=== PATIENT | male | born 1950 | race Caucasian/White ===

== ENCOUNTER 2017-07-30 14:00 | Outpatient (RCR) | payer MEDICAID, SELFPAY ==
[2017-07-05 00:44] VITALS: BP 143/68; PULSE 85; RESP 18; TEMP 37.2; BMI 53.1
[2017-07-23 14:02] VITALS: BP 126/76; PULSE 104; RESP 20; TEMP 37.3; BMI 53.1
--- NOTE | 2017-07-23 18:21 | PCM.WC.PN ---
(1) Chronic venous hypertension (idiopathic) with ulcer of bilateral lower extremity Status: Chronic Current Visit: Yes Code(s): I87.313 - Chronic venous hypertension (idiopathic) with ulcer of bilateral lower extremity (2) Bilateral edema of lower extremity Status: Chronic Current Visit: Yes Code(s): R60.0 - Localized edema (3) Morbid obesity due to excess calories Status: Chronic Current Visit: Yes Code(s): E66.01 - Morbid (severe) obesity due to excess calories (4) Lymphedema Status: Chronic Current Visit: Yes Code(s): I89.0 - Lymphedema, not elsewhere classified (5) Venous ulcer of right lower extremity without varicose veins Status: Chronic Current Visit: Yes Code(s): I87.2 - Venous insufficiency (chronic) (peripheral); L97.919 - Non-pressure chronic ulcer of unspecified part of right lower leg with unspecified severity Type of Wound Date of Service: 07/23/17 Chief Complaint: venous ulcers of bilateral lower extremities, chronic lymphedema of bilateral lower extremities History of Wound: This is a 64-year-old morbidly obese white male with multiple medical problems. These include diabetes mellitus, sleep apnea, hyperlipidemia, chronic obstructive pulmonary disease, lower extremity swelling, edema, and lymphedema, etc. The patient's chronic obstructive pulmonary disease and morbid obesity significantly limit his mobility. He is also oxygen dependent. The patient had a dehisced surgical wound on the posterior aspect of his right thigh following excision of a benign lesion on April 20, 2014 which has been healed after treatment at the wound healing center. He has chronic swelling and edema and lymphedema in his lower extremities, with skin changes and has been noncompliant with lymphedema pumps and compression stockings. The changes in the lower extremities appear related to chronic dependency. He presents complaining of ulcerations of lower extremities and drainage which started about a week and a half ago. He was recently discharged from our care on 05/14/17 for similar ulcerations caused by venous disease and lymphedema but has been noncompliant with ongoing compression treatment. Progress of Wound: Kamran tolerated UNNA boots. His left leg is healed but still edematous. His right leg is improved as well. He has chronic lymphedema. He refused Circaids as he states that he cannot afford them. He has lymphedema pumps but does not use them. He denies fever or chills. - Physical Exam Vital Signs Temp Pulse Resp BP 99.1 F 104 H 20 H 126/76 H 07/23/17 14:02 07/23/17 14:02 07/23/17 14:02 07/23/17 14:02 General: Alert, Oriented x3, Cooperative, No apparent distress HEENT: Atraumatic, Normocephalic Oral: Moist Mucosa Abdomen: Obese Extremities: Edema Skin: Ulcer/ Wound Wound Measurements and Assessment - Nurse 1 - General Ulcer Measurement Start: 07/23/17 14:02 Freq: Status: Active Protocol: Activity Type Activity Date Activity User E-Sign Co-Sign Detail Recorded Client Recorded Date Recorded By Document 07/23/17 14:02 [facility] [id number] 07/23/17 14:22 [facility] 07/23/17 14:02 Wound Center Nurse 1 [Ulcer Assessment Protocol: WC.WD.LOC] #8 LT POST LOWER LEG CLUSTER -Combined with other wound No -Current Size (cm) - Length 0 -Current Size (cm) - Width 0 -Current Size (cm) - Depth 0 -Total Square Cm 0 -Epithelialization Large 67-100% #7 RT INFERIOR CALF CLUSTER -Combined with other wound No -Current Size (cm) - Length 4.9 -Current Size (cm) - Width 8 -Current Size (cm) - Depth 0.1 -Total Square Cm 39.2 -Photo Taken No -Epithelialization Medium 34-66% -Tunneling No -Undermining/Tunneling No -Exudate Amt Small (1-33%) -Exudate Type Serosanguineous -Wound Margin Distinct, Outline Attached -Granulation Amt Large (67-100%) -Granulation Quality [place] -Slough/Fibrin No -Necrosis Amt None Present (0 %) -Structure Exposed N/A -Texture (Estela-wound Skin Appearance) Scarring -Moisture (Estela-wound Skin Appearance Dry/Scaly ) -Color (Estela-wound Skin Appearance) Hemosiderin Staining -Temperature (Estela-wound Skin No Abnormality Appearance) (Pt Warm) -Tenderness on Palpation (Estela-wound No Skin Appearance) -Ulcer Cleansing Wound Cleanser -Foul Odor after Cleansing No -Anesthetic Used 4% Lidocaine Solution #6 RT SUPERIOR CALF -Combined with other wound No -Current Size (cm) - Length 2 -Current Size (cm) - Width 2 -Current Size (cm) - Depth 0.1 -Total Square Cm 4 -Photo Taken No -Epithelialization Medium 34-66% -Tunneling No -Undermining/Tunneling No -Exudate Amt Medium (34-66%) -Exudate Type Serosanguineous -Wound Margin Distinct, Outline Attached -Granulation Amt Large (67-100%) -Granulation Quality [place] -Slough/Fibrin No -Necrosis Amt None Present (0 %) -Structure Exposed None/Limited to Skin Breakdown -Texture (Estela-wound Skin Appearance) Scarring -Moisture (Estela-wound Skin Appearance Dry/Scaly ) -Color (Estela-wound Skin Appearance) Hemosiderin Staining -Temperature (Estela-wound Skin No Abnormality Appearance) (Pt Warm) -Tenderness on Palpation (Estela-wound No Skin Appearance) -Ulcer Cleansing Wound Cleanser -Foul Odor after Cleansing No -Anesthetic Used 4% Lidocaine Solution [Edema Assessment] -Lower Limb Edema Present Yes -Right Calf (cm) 54.4 -Right Ankle (cm) 34.9 -Left Calf (cm) 51 -Left Ankle (cm) 33.4 WC - Nurse 2 - General Ulcer CM Notes Start: 07/23/17 14:02 Freq: Status: Active Protocol: Activity Type Activity Date Activity User E-Sign Co-Sign Detail Recorded Client Recorded Date Recorded By Document 07/23/17 15:59 [id number] 07/23/17 16:03 07/23/17 15:59 Wound Center Nurse 2 [Procedure/Treatment] #8 LT POST LOWER LEG CLUSTER -Time 15:59 -Correct Patient Yes -Correct Side, Site, Position Yes -Correct Procedure Yes -Procedure Performed Yes -Post Debridement Size (cm) - Length 0 -Post Debridement Size (cm) - Width 0 -Post Debridement Size (cm) - Depth 0 -Total Square Cm 0 -Wound/Ulcer Outcome Healed- Epithelialized -Ulcer Cleansing Rinsed/ Irrigated with Saline -Foul Odor after Cleansing No -Bioengineered Tissue No -Cetacaine [place] No -Bleeding Controlled with NA -Treatment Response Procedure Tolerated Well #7 RT INFERIOR CALF CLUSTER -Time 16:00 -Correct Patient Yes -Correct Side, Site, Position Yes -Correct Procedure Yes -Procedure Performed Yes -Post Debridement Size (cm) - Length 8.0 -Post Debridement Size (cm) - Width 8.0 -Post Debridement Size (cm) - Depth 0.1 -Total Square Cm 64.00 -Wound/Ulcer Outcome Not Healed -Ulcer Cleansing Rinsed/ Irrigated with Saline -Foul Odor after Cleansing No -Bioengineered Tissue No -Cetacaine [place] No -Topical Lidocaine (%) 5 -Bleeding Controlled with NA -Other NO DEBRIDEMENT TODAY -Treatment Response Procedure Tolerated Well #6 RT SUPERIOR CALF -Time 16:01 -Correct Patient Yes -Correct Side, Site, Position Yes -Correct Procedure Yes -Procedure Performed Yes -Post Debridement Size (cm) - Length 0 -Post Debridement Size (cm) - Width 0 -Post Debridement Size (cm) - Depth 0 -Total Square Cm 0 -Wound/Ulcer Outcome Healed- Epithelialized -Ulcer Cleansing Rinsed/ Irrigated with Saline -Foul Odor after Cleansing No -Bioengineered Tissue No -Cetacaine [place] No -Bleeding Controlled with NA -Treatment Response Procedure Tolerated Well [See Physician Procedure note for Specifics] Pain Scale: 0-10 Numeric [Pain] -Is Patient Pain Free? Yes Psych/Mental Status: Normal Affect, Appropriate Debridement Note Post-Debridement Measurements/Treatment WC - Nurse 2 - General Ulcer CM Notes Start: 07/23/17 14:02 Freq: Status: Active Protocol: Activity Type Activity Date Activity User E-Sign Co-Sign Detail Recorded Client Recorded Date Recorded By Document 07/23/17 15:59 [id number] 07/23/17 16:03 07/23/17 15:59 Wound Center Nurse 2 #8 LT POST LOWER LEG CLUSTER -Time 15:59 -Correct Patient Yes -Correct Side, Site, Position Yes -Correct Procedure Yes -Procedure Performed Yes -Post Debridement Size (cm) - Length 0 -Post Debridement Size (cm) - Width 0 -Post Debridement Size (cm) - Depth 0 -Total Square Cm 0 -Wound/Ulcer Outcome Healed- Epithelialized -Ulcer Cleansing Rinsed/ Irrigated with Saline -Foul Odor after Cleansing No -Bioengineered Tissue No -Cetacaine [place] No -Bleeding Controlled with NA -Treatment Response Procedure Tolerated Well #7 RT INFERIOR CALF CLUSTER -Time 16:00 -Correct Patient Yes -Correct Side, Site, Position Yes -Correct Procedure Yes -Procedure Performed Yes -Post Debridement Size (cm) - Length 8.0 -Post Debridement Size (cm) - Width 8.0 -Post Debridement Size (cm) - Depth 0.1 -Total Square Cm 64.00 -Wound/Ulcer Outcome Not Healed -Ulcer Cleansing Rinsed/ Irrigated with Saline -Foul Odor after Cleansing No -Bioengineered Tissue No -Cetacaine [place] No -Topical Lidocaine (%) 5 -Bleeding Controlled with NA -Other NO DEBRIDEMENT TODAY -Treatment Response Procedure Tolerated Well #6 RT SUPERIOR CALF -Time 16:01 -Correct Patient Yes -Correct Side, Site, Position Yes -Correct Procedure Yes -Procedure Performed Yes -Post Debridement Size (cm) - Length 0 -Post Debridement Size (cm) - Width 0 -Post Debridement Size (cm) - Depth 0 -Total Square Cm 0 -Wound/Ulcer Outcome Healed- Epithelialized -Ulcer Cleansing Rinsed/ Irrigated with Saline -Foul Odor after Cleansing No -Bioengineered Tissue No -Cetacaine [place] No -Bleeding Controlled with NA -Treatment Response Procedure Tolerated Well Pain Scale: 0-10 Numeric Is Patient Pain Free? Yes Wound debrided: left posterior leg cluster Laterality: Left No debridement was completed today - Additional Wound Wound debrided: right inferior calf cluster Laterality: Right Patient tolerated procedure: Patient tolerated procedure well Operative Diagnosis: No debridement performed - Additional Wound Wound debrided: right superior calf Laterality: Right Patient tolerated procedure: Patient tolerated procedure well Operative Diagnosis: No debridement performed Assessment/Plan Active Problems Chronic venous hypertension (idiopathic) with ulcer of bilateral lower extremity (Chronic) Bilateral edema of lower extremity (Chronic) Morbid obesity due to excess calories (Chronic) Lymphedema (Chronic) Venous ulcer of right lower extremity without varicose veins (Chronic) Assessment: lymphedema. Chronic venous hypertension with ulcers right and left LE. morbid obesity Plan: Philippes wounds/ulcers were evaluated but no debridement was necessary as there was not any slough or devitalized tissue present. The wounds were pink and very supperficial. Will treat him with Aquacel Ag and Unna boot compression and have him return next week for change. Reiterated importance of compression ongoing and also good protein intake as well as glucose control. His noncompliance with compression treatment was discussed and he is aware that this is the reason why he has had recurrence of his ulcers. He will follow up in 1 week.
--- NOTE | 2017-07-23 18:26 | PN.PCM_ITS ---
(1) Chronic venous hypertension (idiopathic) with ulcer of bilateral lower extremity Status: Chronic Current Visit: Yes Code(s): I87.313 - Chronic venous hypertension (idiopathic) with ulcer of bilateral lower extremity (2) Bilateral edema of lower extremity Status: Chronic Current Visit: Yes Code(s): R60.0 - Localized edema (3) Morbid obesity due to excess calories Status: Chronic Current Visit: Yes Code(s): E66.01 - Morbid (severe) obesity due to excess calories (4) Lymphedema Status: Chronic Current Visit: Yes Code(s): I89.0 - Lymphedema, not elsewhere classified (5) Venous ulcer of right lower extremity without varicose veins Status: Chronic Current Visit: Yes Code(s): I87.2 - Venous insufficiency ( chronic) (peripheral); L97.919 - Non-pressure chronic ulcer of unspecified part of right lower leg with unspecified severity Type of Wound Date of Service: 07/23/17 Chief Complaint: venous ulcers of bilateral lower extremities, chronic lymphedema of bilateral lower extremities History of Wound: This is a 64-year-old morbidly obese white male with multiple medical problems. These include diabetes mellitus, sleep apnea, hyperlipidemia , chronic obstructive pulmonary disease, lower extremity swelling, edema, and lymphedema, etc. The patient's chronic obstructive pulmonary disease and morbid obesity significantly limit his mobility. He is also oxygen dependent. The patient had a dehisced surgical wound on the posterior aspect of his right thigh following excision of a benign lesion on April 20, 2014 which has been healed after treatment at the wound healing center. He has chronic swelling and edema and lymphedema in his lower extremities, with skin changes and has been noncompliant with lymphedema pumps and compression stockings. The changes in the lower extremities appear related to chronic dependency. He presents complaining of ulcerations of lower extremities and drainage which started about a week and a half ago. He was recently discharged from our care on for similar ulcerations caused by venous disease and lymphedema but has been noncompliant with ongoing compression treatment. Progress of Wound: Kamran tolerated UNNA boots. His left leg is healed but still edematous. His right leg is improved as well. He has chronic lymphedema. He refused Circaids as he states that he cannot afford them. He has lymphedema pumps but does not use them. He denies fever or chills. - Physical Exam Vital Signs Temp Pulse Resp BP 99.1 F 104 H 20 H 126/76 H 07/23/17 14:02 07/23/17 14:02 07/23/17 14:02 07/23/17 14:02 General: Alert, Oriented x3, Cooperative, No apparent distress HEENT: Atraumatic, Normocephalic Oral: Moist Mucosa Abdomen: Obese Extremities: Edema Skin: Ulcer/ Wound Wound Measurements and Assessment - Nurse 1 - General Ulcer Measurement Start: 07/23/17 14:02 Freq: Status: Active Protocol: Activity Type Activity Date Activity User E-Sign Co-Sign Detail Recorded Client Recorded Date Recorded By Document 07/23/17 14:02 [facility] [id number] 07/23/17 14:22 [facility] 07/23/17 14:02 Wound Center Nurse 1 [Ulcer Assessment Protocol: WC.WD.LOC] #8 LT POST LOWER LEG CLUSTER -Combined with other wound No -Current Size (cm) - Length 0 -Current Size (cm) - Width 0 -Current Size (cm) - Depth 0 -Total Square Cm 0 -Epithelialization Large 67-100% #7 RT INFERIOR CALF CLUSTER -Combined with other wound No -Current Size (cm) - Length 4.9 -Current Size (cm) - Width 8 -Current Size (cm) - Depth 0.1 -Total Square Cm 39.2 -Photo Taken No -Epithelialization Medium 34-66% -Tunneling No -Undermining/Tunneling No -Exudate Amt Small (1-33%) -Exudate Type Serosanguineous -Wound Margin Distinct, Outline Attached -Granulation Amt Large (67-100%) -Granulation Quality [place] -Slough/Fibrin No -Necrosis Amt None Present (0 %) -Structure Exposed N/A -Texture (Estela-wound Skin Appearance) Scarring -Moisture (Estela-wound Skin Appearance Dry/Scaly ) -Color (Estela-wound Skin Appearance) Hemosiderin Staining -Temperature (Estela-wound Skin No Abnormality Appearance) (Pt Warm) -Tenderness on Palpation (Estela-wound No Skin Appearance) -Ulcer Cleansing Wound Cleanser -Foul Odor after Cleansing No -Anesthetic Used 4% Lidocaine Solution #6 RT SUPERIOR CALF -Combined with other wound No -Current Size (cm) - Length 2 -Current Size (cm) - Width 2 -Current Size (cm) - Depth 0.1 -Total Square Cm 4 -Photo Taken No -Epithelialization Medium 34-66% -Tunneling No -Undermining/Tunneling No -Exudate Amt Medium (34-66%) -Exudate Type Serosanguineous -Wound Margin Distinct, Outline Attached -Granulation Amt Large (67-100%) -Granulation Quality [place] -Slough/Fibrin No -Necrosis Amt None Present (0 %) -Structure Exposed None/Limited to Skin Breakdown -Texture (Estela-wound Skin Appearance) Scarring -Moisture (Estela-wound Skin Appearance Dry/Scaly ) -Color (Estela-wound Skin Appearance) Hemosiderin Staining -Temperature (Estela-wound Skin No Abnormality Appearance) (Pt Warm) -Tenderness on Palpation (Estela-wound No Skin Appearance) -Ulcer Cleansing Wound Cleanser -Foul Odor after Cleansing No -Anesthetic Used 4% Lidocaine Solution [Edema Assessment] -Lower Limb Edema Present Yes -Right Calf (cm) 54.4 -Right Ankle (cm) 34.9 -Left Calf (cm) 51 -Left Ankle (cm) 33.4 WC - Nurse 2 - General Ulcer CM Notes Start: 07/23/17 14:02 Freq: Status: Active Protocol: Activity Type Activity Date Activity User E-Sign Co-Sign Detail Recorded Client Recorded Date Recorded By Document 07/23/17 15:59 [id number] 07/23/17 16:03 07/23/17 15:59 Wound Center Nurse 2 [Procedure/Treatment] #8 LT POST LOWER LEG CLUSTER -Time 15:59 -Correct Patient Yes -Correct Side, Site, Position Yes -Correct Procedure Yes -Procedure Performed Yes -Post Debridement Size (cm) - Length 0 -Post Debridement Size (cm) - Width 0 -Post Debridement Size (cm) - Depth 0 -Total Square Cm 0 -Wound/Ulcer Outcome Healed- Epithelialized -Ulcer Cleansing Rinsed/ Irrigated with Saline -Foul Odor after Cleansing No -Bioengineered Tissue No -Cetacaine [place] No -Bleeding Controlled with NA -Treatment Response Procedure Tolerated Well #7 RT INFERIOR CALF CLUSTER -Time 16:00 -Correct Patient Yes -Correct Side, Site, Position Yes -Correct Procedure Yes -Procedure Performed Yes -Post Debridement Size (cm) - Length 8.0 -Post Debridement Size (cm) - Width 8.0 -Post Debridement Size (cm) - Depth 0.1 -Total Square Cm 64.00 -Wound/Ulcer Outcome Not Healed -Ulcer Cleansing Rinsed/ Irrigated with Saline -Foul Odor after Cleansing No -Bioengineered Tissue No -Cetacaine [place] No -Topical Lidocaine (%) 5 -Bleeding Controlled with NA -Other NO DEBRIDEMENT TODAY -Treatment Response Procedure Tolerated Well #6 RT SUPERIOR CALF -Time 16:01 -Correct Patient Yes -Correct Side, Site, Position Yes -Correct Procedure Yes -Procedure Performed Yes -Post Debridement Size (cm) - Length 0 -Post Debridement Size (cm) - Width 0 -Post Debridement Size (cm) - Depth 0 -Total Square Cm 0 -Wound/Ulcer Outcome Healed- Epithelialized -Ulcer Cleansing Rinsed/ Irrigated with Saline -Foul Odor after Cleansing No -Bioengineered Tissue No -Cetacaine [place] No -Bleeding Controlled with NA -Treatment Response Procedure Tolerated Well [See Physician Procedure note for Specifics] Pain Scale: 0-10 Numeric [Pain] -Is Patient Pain Free? Yes Psych/Mental Status: Normal Affect, Appropriate Debridement Note Post-Debridement Measurements/Treatment WC - Nurse 2 - General Ulcer CM Notes Start: 07/23/17 14:02 Freq: Status: Active Protocol: Activity Type Activity Date Activity User E-Sign Co-Sign Detail Recorded Client Recorded Date Recorded By Document 07/23/17 15:59 [id number] 07/23/17 16:03 07/23/17 15:59 Wound Center Nurse 2 #8 LT POST LOWER LEG CLUSTER -Time 15:59 -Correct Patient Yes -Correct Side, Site, Position Yes -Correct Procedure Yes -Procedure Performed Yes -Post Debridement Size (cm) - Length 0 -Post Debridement Size (cm) - Width 0 -Post Debridement Size (cm) - Depth 0 -Total Square Cm 0 -Wound/Ulcer Outcome Healed- Epithelialized -Ulcer Cleansing Rinsed/ Irrigated with Saline -Foul Odor after Cleansing No -Bioengineered Tissue No -Cetacaine [place] No -Bleeding Controlled with NA -Treatment Response Procedure Tolerated Well #7 RT INFERIOR CALF CLUSTER -Time 16:00 -Correct Patient Yes -Correct Side, Site, Position Yes -Correct Procedure Yes -Procedure Performed Yes -Post Debridement Size (cm) - Length 8.0 -Post Debridement Size (cm) - Width 8.0 -Post Debridement Size (cm) - Depth 0.1 -Total Square Cm 64.00 -Wound/Ulcer Outcome Not Healed -Ulcer Cleansing Rinsed/ Irrigated with Saline -Foul Odor after Cleansing No -Bioengineered Tissue No -Cetacaine [place] No -Topical Lidocaine (%) 5 -Bleeding Controlled with NA -Other NO DEBRIDEMENT TODAY -Treatment Response Procedure Tolerated Well #6 RT SUPERIOR CALF -Time 16:01 -Correct Patient Yes -Correct Side, Site, Position Yes -Correct Procedure Yes -Procedure Performed Yes -Post Debridement Size (cm) - Length 0 -Post Debridement Size (cm) - Width 0 -Post Debridement Size (cm) - Depth 0 -Total Square Cm 0 -Wound/Ulcer Outcome Healed- Epithelialized -Ulcer Cleansing Rinsed/ Irrigated with Saline -Foul Odor after Cleansing No -Bioengineered Tissue No -Cetacaine [place] No -Bleeding Controlled with NA -Treatment Response Procedure Tolerated Well Pain Scale: 0-10 Numeric Is Patient Pain Free? Yes Wound debrided: left posterior leg cluster Laterality: Left No debridement was completed today - Additional Wound Wound debrided: right inferior calf cluster Laterality: Right Patient tolerated procedure: Patient tolerated procedure well Operative Diagnosis: No debridement performed - Additional Wound Wound debrided: right superior calf Laterality: Right Patient tolerated procedure: Patient tolerated procedure well Operative Diagnosis: No debridement performed Assessment/Plan Active Problems Chronic venous hypertension (idiopathic) with ulcer of bilateral lower extremity (Chronic) Bilateral edema of lower extremity (Chronic) Morbid obesity due to excess calories (Chronic) Lymphedema (Chronic) Venous ulcer of right lower extremity without varicose veins (Chronic) Assessment: lymphedema. Chronic venous hypertension with ulcers right and left LE. morbid obesity Plan: Philippes wounds/ulcers were evaluated but no debridement was necessary as there was not any slough or devitalized tissue present. The wounds were pink and very supperficial. Will treat him with Aquacel Ag and Unna boot compression and have him return next week for change. Reiterated importance of compression ongoing and also good protein intake as well as glucose control. His noncompliance with compression treatment was discussed and he is aware that this is the reason why he has had recurrence of his ulcers. He will follow up in 1 week.
[2017-07-30 14:35] VITALS: BP 137/66; PULSE 106; RESP 22; TEMP 36.8; BMI 53.1
== END 2017-08-04 23:59 ==
LOC: WC 14:00
PROVIDERS: Visit Provider Family Medicine
DX: E11.622 Type 2 diabetes mellitus with other skin ulcer (principal); I87.313 Chronic venous hypertension (idiopathic) with ulcer of bilateral lower extremity; L97.219 Non-pressure chronic ulcer of right calf with unspecified severity; L97.929 Non-pressure chronic ulcer of unspecified part of left lower leg with unspecified severity; E66.01 Morbid (severe) obesity due to excess calories; Z71.3 Dietary counseling and surveillance; I89.0 Lymphedema, not elsewhere classified; E78.5 Hyperlipidemia, unspecified; J44.9 Chronic obstructive pulmonary disease, unspecified; G47.30 Sleep apnea, unspecified; Z99.81 Dependence on supplemental oxygen; Z91.19 Patient's noncompliance with other medical treatment and regimen
CPT/HCPCS: 29580; 99211; 99214; G0463

== ENCOUNTER 2017-08-06 09:27 | Outpatient (RCR) | payer MEDICAID, SELFPAY ==
[2017-07-30 14:35] VITALS: BP 137/66
[2017-08-05 00:34] VITALS: PULSE 106; RESP 22; TEMP 36.8
[2017-08-06 14:19] VITALS: BP 136/77; PULSE 104; RESP 20; TEMP 36.5; BMI 53.1
--- NOTE | 2017-08-06 19:01 | PCM.WC.PN ---
(1) Morbid obesity due to excess calories Status: Chronic Current Visit: Yes Code(s): E66.01 - Morbid (severe) obesity due to excess calories (2) Lymphedema Status: Chronic Current Visit: Yes Code(s): I89.0 - Lymphedema, not elsewhere classified (3) Venous ulcer of right lower extremity without varicose veins Status: Resolved Current Visit: Yes Code(s): I87.2 - Venous insufficiency (chronic) (peripheral); L97.919 - Non-pressure chronic ulcer of unspecified part of right lower leg with unspecified severity (4) Venous ulcer of left lower extremity without varicose veins Status: Resolved Current Visit: Yes Code(s): I87.2 - Venous insufficiency (chronic) (peripheral); L97.929 - Non-pressure chronic ulcer of unspecified part of left lower leg with unspecified severity Type of Wound Date of Service: 08/06/17 Chief Complaint: venous ulcers of bilateral lower extremities, chronic lymphedema of bilateral lower extremities History of Wound: This is a 64-year-old morbidly obese white male with multiple medical problems. These include diabetes mellitus, sleep apnea, hyperlipidemia, chronic obstructive pulmonary disease, lower extremity swelling, edema, and lymphedema, etc. The patient's chronic obstructive pulmonary disease and morbid obesity significantly limit his mobility. He is also oxygen dependent. The patient had a dehisced surgical wound on the posterior aspect of his right thigh following excision of a benign lesion on April 20, 2014 which has been healed after treatment at the wound healing center. He has chronic swelling and edema and lymphedema in his lower extremities, with skin changes and has been noncompliant with lymphedema pumps and compression stockings. The changes in the lower extremities appear related to chronic dependency. He presents complaining of ulcerations of lower extremities and drainage which started about a week and a half ago. He was recently discharged from our care on 05/14/17 for similar ulcerations caused by venous disease and lymphedema but has been noncompliant with ongoing compression treatment. Progress of Wound: Kamran tolerated UNNA boots. His wounds are healed. He has chronic lymphedema. He refused Circaids as he states that he cannot afford them. He has lymphedema pumps but does not use them. He denies fever or chills. - Physical Exam Vital Signs Temp Pulse Resp BP 97.7 F L 104 H 20 H 136/77 H 08/06/17 14:19 08/06/17 14:19 08/06/17 14:19 08/06/17 14:19 General: Alert, Oriented x3, Cooperative, No apparent distress HEENT: Atraumatic, Normocephalic Oral: Moist Mucosa Abdomen: Obese Extremities: Edema Wound Measurements and Assessment WC - Nurse 1 - General Ulcer Measurement Start: 08/06/17 14:19 Freq: Status: Active Protocol: Activity Type Activity Date Activity User E-Sign Co-Sign Detail Recorded Client Recorded Date Recorded By Document 08/06/17 14:19 [facility] [id number] 08/06/17 14:31 [facility] 08/06/17 14:19 Wound Center Nurse 1 [Edema Assessment] -Lower Limb Edema Present Yes -Right Calf (cm) 53.7 -Right Ankle (cm) 32 -Left Calf (cm) 55 -Left Ankle (cm) 31.1 WC - Nurse 2 - General Ulcer CM Notes Start: 08/06/17 14:19 Freq: Status: Active Protocol: Activity Type Activity Date Activity User E-Sign Co-Sign Detail Recorded Client Recorded Date Recorded By Document 08/06/17 15:37 [id number] 08/06/17 15:41 08/06/17 15:37 Pain Scale: 0-10 Numeric [Pain] -Is Patient Pain Free? Yes Psych/Mental Status: Normal Affect, Appropriate Debridement Note Post-Debridement Measurements/Treatment WC - Nurse 2 - General Ulcer CM Notes Start: 08/06/17 14:19 Freq: Status: Active Protocol: Activity Type Activity Date Activity User E-Sign Co-Sign Detail Recorded Client Recorded Date Recorded By Document 08/06/17 15:37 [id number] 08/06/17 15:41 08/06/17 15:37 Pain Scale: 0-10 Numeric Is Patient Pain Free? Yes No debridement was completed today Assessment/Plan Active Problems Morbid obesity due to excess calories (Chronic) Lymphedema (Chronic) Assessment: lymphedema. Chronic venous hypertension with ulcers right and left LE. morbid obesity Plan: Savage wounds/ulcers are healed. Will have him use tibigrips for compression. Reiterated importance of compression ongoing and also good protein intake as well as glucose control. His noncompliance with compression treatment was discussed and he is aware that this is the reason why he has had recurrence of his ulcers. He will be discharged at this time and will return if/when he develops recurrence of his ulcers. F/U as needed.
--- NOTE | 2017-08-06 19:05 | PN.PCM_ITS ---
(1) Morbid obesity due to excess calories Status: Chronic Current Visit: Yes Code(s): E66.01 - Morbid (severe) obesity due to excess calories (2) Lymphedema Status: Chronic Current Visit: Yes Code(s): I89.0 - Lymphedema, not elsewhere classified (3) Venous ulcer of right lower extremity without varicose veins Status: Resolved Current Visit: Yes Code(s): I87.2 - Venous insufficiency ( chronic) (peripheral); L97.919 - Non-pressure chronic ulcer of unspecified part of right lower leg with unspecified severity (4) Venous ulcer of left lower extremity without varicose veins Status: Resolved Current Visit: Yes Code(s): I87.2 - Venous insufficiency ( chronic) (peripheral); L97.929 - Non-pressure chronic ulcer of unspecified part of left lower leg with unspecified severity Type of Wound Date of Service: 08/06/17 Chief Complaint: venous ulcers of bilateral lower extremities, chronic lymphedema of bilateral lower extremities History of Wound: This is a 64-year-old morbidly obese white male with multiple medical problems. These include diabetes mellitus, sleep apnea, hyperlipidemia , chronic obstructive pulmonary disease, lower extremity swelling, edema, and lymphedema, etc. The patient's chronic obstructive pulmonary disease and morbid obesity significantly limit his mobility. He is also oxygen dependent. The patient had a dehisced surgical wound on the posterior aspect of his right thigh following excision of a benign lesion on April 20, 2014 which has been healed after treatment at the wound healing center. He has chronic swelling and edema and lymphedema in his lower extremities, with skin changes and has been noncompliant with lymphedema pumps and compression stockings. The changes in the lower extremities appear related to chronic dependency. He presents complaining of ulcerations of lower extremities and drainage which started about a week and a half ago. He was recently discharged from our care on for similar ulcerations caused by venous disease and lymphedema but has been noncompliant with ongoing compression treatment. Progress of Wound: Kamran tolerated UNNA boots. His wounds are healed. He has chronic lymphedema. He refused Circaids as he states that he cannot afford them. He has lymphedema pumps but does not use them. He denies fever or chills. - Physical Exam Vital Signs Temp Pulse Resp BP 97.7 F L 104 H 20 H 136/77 H 08/06/17 14:19 08/06/17 14:19 08/06/17 14:19 08/06/17 14:19 General: Alert, Oriented x3, Cooperative, No apparent distress HEENT: Atraumatic, Normocephalic Oral: Moist Mucosa Abdomen: Obese Extremities: Edema Wound Measurements and Assessment WC - Nurse 1 - General Ulcer Measurement Start: 08/06/17 14:19 Freq: Status: Active Protocol: Activity Type Activity Date Activity User E-Sign Co-Sign Detail Recorded Client Recorded Date Recorded By Document 08/06/17 14:19 [facility] [id number] 08/06/17 14:31 [facility] 08/06/17 14:19 Wound Center Nurse 1 [Edema Assessment] -Lower Limb Edema Present Yes -Right Calf (cm) 53.7 -Right Ankle (cm) 32 -Left Calf (cm) 55 -Left Ankle (cm) 31.1 WC - Nurse 2 - General Ulcer CM Notes Start: 08/06/17 14:19 Freq: Status: Active Protocol: Activity Type Activity Date Activity User E-Sign Co-Sign Detail Recorded Client Recorded Date Recorded By Document 08/06/17 15:37 [id number] 08/06/17 15:41 08/06/17 15:37 Pain Scale: 0-10 Numeric [Pain] -Is Patient Pain Free? Yes Psych/Mental Status: Normal Affect, Appropriate Debridement Note Post-Debridement Measurements/Treatment WC - Nurse 2 - General Ulcer CM Notes Start: 08/06/17 14:19 Freq: Status: Active Protocol: Activity Type Activity Date Activity User E-Sign Co-Sign Detail Recorded Client Recorded Date Recorded By Document 08/06/17 15:37 [id number] 08/06/17 15:41 08/06/17 15:37 Pain Scale: 0-10 Numeric Is Patient Pain Free? Yes No debridement was completed today Assessment/Plan Active Problems Morbid obesity due to excess calories (Chronic) Lymphedema (Chronic) Assessment: lymphedema. Chronic venous hypertension with ulcers right and left LE. morbid obesity Plan: Savage wounds/ulcers are healed. Will have him use tibigrips for compression. Reiterated importance of compression ongoing and also good protein intake as well as glucose control. His noncompliance with compression treatment was discussed and he is aware that this is the reason why he has had recurrence of his ulcers. He will be discharged at this time and will return if/when he develops recurrence of his ulcers. F/U as needed.
== END 2017-09-01 23:59 ==
LOC: WC 09:27
PROVIDERS: Visit Provider Family Medicine
DX: I87.2 Venous insufficiency (chronic) (peripheral) (principal); L97.929 Non-pressure chronic ulcer of unspecified part of left lower leg with unspecified severity; L97.919 Non-pressure chronic ulcer of unspecified part of right lower leg with unspecified severity; I89.0 Lymphedema, not elsewhere classified; E66.01 Morbid (severe) obesity due to excess calories; Z71.3 Dietary counseling and surveillance; E78.5 Hyperlipidemia, unspecified; J44.9 Chronic obstructive pulmonary disease, unspecified; G47.30 Sleep apnea, unspecified; Z99.81 Dependence on supplemental oxygen; Z91.19 Patient's noncompliance with other medical treatment and regimen
CPT/HCPCS: 99212; G0463

== ENCOUNTER 2017-09-23 14:00 | Outpatient (RCR) | payer MEDICAID, SELFPAY ==
[2017-09-02 00:30] VITALS: BP 136/77; PULSE 104; RESP 20; TEMP 36.5; BMI 53.1
[2017-09-09 15:54] VITALS: BP 136/64; PULSE 78; RESP 18; TEMP 37.4; BMI 50.1
--- NOTE | 2017-09-09 18:04 | PCM.WC.HP ---
(1) Venous ulcer of right lower extremity without varicose veins Status: Acute Code(s): I87.2 - Venous insufficiency (chronic) (peripheral); L97.919 - Non-pressure chronic ulcer of unspecified part of right lower leg with unspecified severity Comment: fat layer exposed (2) Diabetes mellitus type 2 in obese Status: Acute Code(s): E11.69 - Type 2 diabetes mellitus with other specified complication; E66.9 - Obesity, unspecified (3) Bilateral edema of lower extremity Status: Chronic Code(s): R60.0 - Localized edema (4) Morbid obesity due to excess calories Status: Chronic Code(s): E66.01 - Morbid (severe) obesity due to excess calories History of Present Illness Date of Service: 09/09/17 Chief Complaint: venous ulcers of right lower extremity, chronic lymphedema of bilateral lower extremities History of Wound: This is a 64-year-old morbidly obese white male with multiple medical problems. 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 He has chronic swelling and edema and lymphedema in his lower extremities, with skin changes and has been noncompliant with lymphedema pumps and compression stockings. He presents complaining of ulcerations of right lower extremity and drainage which started about a month ago shortly after being discharged from the wound center. He also noted edema of the bilateral lower extremities as well. He has been noncompliant with ongoing compression treatment, refuses to wear his circaids, and only wears his tubigrips as needed. He denies any other alleviating or aggravating factors and denies any pain or foul-smelling discharge. Past Medical History Past Medical History: Chronic Problems Morbid obesity due to excess calories (Chronic) Bilateral edema of lower extremity (Chronic) Lymphedema (Chronic) Chronic venous hypertension (idiopathic) with ulcer of bilateral lower extremity (Chronic) Surgical History: - - Left knee surgery, 1978 Allergies/Adverse Reactions: Allergies cephalexin [From Keflex] Allergy (Verified 01/14/17 16:06) Hives Home Medications: Ambulatory Orders Medication Instructions Recorded Albuterol Aerosols [Ventolin 05/28/14 Aerosols] Furosemide [Lasix] 80 mg PO BIDLX 05/28/14 Glimepiride [Amaryl] 4 mg PO DAILY 05/28/14 Meloxicam [Mobic] 15 mg PO DAILY 05/28/14 Metformin HCl [Glucophage] 1,000 mg PO BIDCM 05/28/14 Omeprazole [Prilosec] 20 mg PO DAILY 05/28/14 Pioglitazone [Actos] 30 mg PO 05/28/14 Potassium Chloride [K-Dur] 10 meq PO DAILY 05/28/14 Simvastatin [Zocor] 20 mg PO QHS 05/28/14 Furosemide [Lasix] 80 mg PO QHS 01/14/17 - Family History Paternal COPD, Renal Disease, - - Pneumonia Maternal - - Lymphoma Smoking Status: Current every day smoker Tobacco Use: Chew Review of Systems Constitutional: Denies: Chills, Fever, Weight Change Eyes: Denies: Pain, Vision Change HEENT: Denies: Difficulty Hearing, Difficulty Swallowing, Sinus Congestion Cardiovascular: Denies: Chest Pain, Palpitations Respiratory: Denies: Cough, Shortness of Breath Gastrointestinal: Denies: Diarrhea, Nausea, Vomiting Genitourinary: Denies: Dysuria, Hematuria Skin: Reports: Wounds - see hpi Endocrine: Denies: Heat/ Cold Intolerance, Polydipsia, Polyuria Hematologic/ Lymphatic: Denies: Easy Bruising, Easy Bleeding - Physical Exam Vital Signs Temp Pulse Resp BP 98.6 F 102 H 18 138/63 H 09/13/17 14:58 09/13/17 14:58 09/13/17 14:58 09/13/17 14:58 General: Alert, Oriented x3, Cooperative, No apparent distress HEENT: PERRLA, EOMI Oral: Moist Mucosa Neck: Supple Lungs: Clear to auscultation, Diminished Cardiovascular: Regular rate, Normal S1, Normal S2, No murmurs Abdomen: Bowel Sounds Present Extremities: No clubbing, No Calf Tenderness, Diminished Peripheral Pulses, Edema - Bilateral lower extremities 2+ pitting edema, erythematous as well Skin: Ulcer/ Wound - Cluster ulcer present right posterior lower extremity with moderate amount of slough and fibrous tissue present, inflamed periwound bed Wound Measurements and Assessment WC - Nurse 1 - General Ulcer Measurement Start: 09/09/17 15:54 Freq: Status: Active Protocol: Activity Type Activity Date Activity User E-Sign Co-Sign Detail Recorded Client Recorded Date Recorded By Document 09/13/17 14:58 [facility] [id number] 09/13/17 15:02 BMF 09/13/17 14:58 Wound Center Nurse 1 [Edema Assessment] -Lower Limb Edema Present Yes -Right Calf (cm) 51.8 -Right Ankle (cm) 33.4 -Left Calf (cm) 51.5 -Left Ankle (cm) 31.4 Musculoskeletal: No Tenderness to Palpation of Joints or Extremities Neurological: Cranial nerves II-XII grossly intact Psych/Mental Status: Normal Affect, Appropriate, Alert and oriented to time, place, person, mood and affect Debridement Note Post-Debridement Measurements/Treatment WC - Nurse 2 - General Ulcer CM Notes Start: 09/09/17 15:54 Freq: Status: Active Protocol: Activity Type Activity Date Activity User E-Sign Co-Sign Detail Recorded Client Recorded Date Recorded By Document 09/09/17 17:05 DV [id number] 09/09/17 17:10 DV 09/09/17 17:05 Wound Center Nurse 2 #9 RIGHT POSTERIOR LE -Time 17:07 -Correct Patient Yes -Correct Side, Site, Position Yes -Correct Procedure Yes -Procedure Performed Yes -Type of Procedure Debridement -Clinical Debridement Subcutaneous -Post Debridement Size (cm) - Length 14.8 -Post Debridement Size (cm) - Width 6.0 -Post Debridement Size (cm) - Depth 0.1 -Total Square Cm 88.80 -Wound/Ulcer Outcome Failed Flap -Ulcer Cleansing Rinsed/ Irrigated with Saline -Foul Odor after Cleansing No -Bioengineered Tissue No -Bleeding Controlled with Pressure -Treatment Response Procedure Tolerated Well Pain Scale: 0-10 Numeric Is Patient Pain Free? Yes Wound debrided: RLE venous ulcer Laterality: Right Type of Debridement: Excisional debridement Anesthesia Used: 4% Lidocaine Solution Depth: in the subcutaneous layer Percentage of wound debrided: 100 Instrument Used: 5mm curette Tissue Removed: slough and fibrous tissue Severity: Fat Layer Exposed Amount of bleeding with debridement: Mild Bleeding Controlled with: Pressure Patient tolerated procedure well Assessment/Plan Assessment: lymphedema. Chronic nonhealing ulcer right lower extremity. morbid obesity Plan: The patient was seen and examined at the wound center today and was updated on the plan of care. A subcutaneous debridement was performed today. The patient tolerated the procedure well. The patients wound care will consist of:unna boot application bilaterally and patient to return next Wednesday for nurse visit and reapplication. Wound cultures were collected. Baseline bloodwork ordered. Vascular studies reviewed from last year which demonstrated DELGADO right 0.87 and left 0.81, he does have a history of venous insufficiency, therefore ulcer is most likely venous in nature, no indication for repeat venous study at this time. Patient educated on the importance of diet on wound healing and instructed to increase protein and vitamin C intake. Patient verbalized understanding. Patient will follow up at wound healing center in one week or sooner if needed. This note was generated with [employer] dictation software. It may contain incorrect words, spelling, and punctuation that were not noted in checking the note before signing. Code Visit Office Visits / Consults: [id number] OV L4 Est 111xxx-113xx: [id number] Steph subq tissue 20 sq cm/< Add On Codes: 88762 Steph subq tissue add-on - x4
[2017-09-13 14:58] VITALS: BP 138/63; PULSE 102; RESP 18; TEMP 37; BMI 50.1
--- NOTE | 2017-09-14 14:20 | HP.PCM_ITS ---
(1) Venous ulcer of right lower extremity without varicose veins Status: Acute Code(s): I87.2 - Venous insufficiency (chronic) (peripheral); L97.919 - Non-pressure chronic ulcer of unspecified part of right lower leg with unspecified severity Comment: fat layer exposed (2) Diabetes mellitus type 2 in obese Status: Acute Code(s): E11.69 - Type 2 diabetes mellitus with other specified complication; E66.9 - Obesity, unspecified (3) Bilateral edema of lower extremity Status: Chronic Code(s): R60.0 - Localized edema (4) Morbid obesity due to excess calories Status: Chronic Code(s): E66.01 - Morbid (severe) obesity due to excess calories History of Present Illness Date of Service: 09/09/17 Chief Complaint: venous ulcers of right lower extremity, chronic lymphedema of bilateral lower extremities History of Wound: This is a 64-year-old morbidly obese white male with multiple medical problems. 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 He has chronic swelling and edema and lymphedema in his lower extremities, with skin changes and has been noncompliant with lymphedema pumps and compression stockings. He presents complaining of ulcerations of right lower extremity and drainage which started about a month ago shortly after being discharged from the wound center. He also noted edema of the bilateral lower extremities as well. He has been noncompliant with ongoing compression treatment, refuses to wear his circaids, and only wears his tubigrips as needed. He denies any other alleviating or aggravating factors and denies any pain or foul-smelling discharge. Past Medical History Past Medical History: Chronic Problems Morbid obesity due to excess calories (Chronic) Bilateral edema of lower extremity (Chronic) Lymphedema (Chronic) Chronic venous hypertension (idiopathic) with ulcer of bilateral lower extremity (Chronic) Surgical History: - - Left knee surgery, 1978 Allergies/Adverse Reactions: Allergies cephalexin [From Keflex] Allergy (Verified 01/14/17 16:06) Hives Home Medications: Ambulatory Orders Medication Instructions Recorded Albuterol Aerosols [Ventolin 05/28/14 Aerosols] Furosemide [Lasix] 80 mg PO BIDLX 05/28/14 Glimepiride [Amaryl] 4 mg PO DAILY 05/28/14 Meloxicam [Mobic] 15 mg PO DAILY 05/28/14 Metformin HCl [Glucophage] 1,000 mg PO BIDCM 05/28/14 Omeprazole [Prilosec] 20 mg PO DAILY 05/28/14 Pioglitazone [Actos] 30 mg PO 05/28/14 Potassium Chloride [K-Dur] 10 meq PO DAILY 05/28/14 Simvastatin [Zocor] 20 mg PO QHS 05/28/14 Furosemide [Lasix] 80 mg PO QHS 01/14/17 - Family History Paternal COPD, Renal Disease, - - Pneumonia Maternal - - Lymphoma Smoking Status: Current every day smoker Tobacco Use: Chew Review of Systems Constitutional: Denies: Chills, Fever, Weight Change Eyes: Denies: Pain, Vision Change HEENT: Denies: Difficulty Hearing, Difficulty Swallowing, Sinus Congestion Cardiovascular: Denies: Chest Pain, Palpitations Respiratory: Denies: Cough, Shortness of Breath Gastrointestinal: Denies: Diarrhea, Nausea, Vomiting Genitourinary: Denies: Dysuria, Hematuria Skin: Reports: Wounds - see hpi Endocrine: Denies: Heat/ Cold Intolerance, Polydipsia, Polyuria Hematologic/ Lymphatic: Denies: Easy Bruising, Easy Bleeding - Physical Exam Vital Signs Temp Pulse Resp BP 98.6 F 102 H 18 138/63 H 09/13/17 14:58 09/13/17 14:58 09/13/17 14:58 09/13/17 14:58 General: Alert, Oriented x3, Cooperative, No apparent distress HEENT: PERRLA, EOMI Oral: Moist Mucosa Neck: Supple Lungs: Clear to auscultation, Diminished Cardiovascular: Regular rate, Normal S1, Normal S2, No murmurs Abdomen: Bowel Sounds Present Extremities: No clubbing, No Calf Tenderness, Diminished Peripheral Pulses, Edema - Bilateral lower extremities 2+ pitting edema, erythematous as well Skin: Ulcer/ Wound - Cluster ulcer present right posterior lower extremity with moderate amount of slough and fibrous tissue present, inflamed periwound bed Wound Measurements and Assessment WC - Nurse 1 - General Ulcer Measurement Start: 09/09/17 15:54 Freq: Status: Active Protocol: Activity Type Activity Date Activity User E-Sign Co-Sign Detail Recorded Client Recorded Date Recorded By Document 09/13/17 14:58 [facility] [id number] 09/13/17 15:02 BMF 09/13/17 14:58 Wound Center Nurse 1 [Edema Assessment] -Lower Limb Edema Present Yes -Right Calf (cm) 51.8 -Right Ankle (cm) 33.4 -Left Calf (cm) 51.5 -Left Ankle (cm) 31.4 Musculoskeletal: No Tenderness to Palpation of Joints or Extremities Neurological: Cranial nerves II-XII grossly intact Psych/Mental Status: Normal Affect, Appropriate, Alert and oriented to time, place, person, mood and affect Debridement Note Post-Debridement Measurements/Treatment WC - Nurse 2 - General Ulcer CM Notes Start: 09/09/17 15:54 Freq: Status: Active Protocol: Activity Type Activity Date Activity User E-Sign Co-Sign Detail Recorded Client Recorded Date Recorded By Document 09/09/17 17:05 DV [id number] 09/09/17 17:10 DV 09/09/17 17:05 Wound Center Nurse 2 #9 RIGHT POSTERIOR LE -Time 17:07 -Correct Patient Yes -Correct Side, Site, Position Yes -Correct Procedure Yes -Procedure Performed Yes -Type of Procedure Debridement -Clinical Debridement Subcutaneous -Post Debridement Size (cm) - Length 14.8 -Post Debridement Size (cm) - Width 6.0 -Post Debridement Size (cm) - Depth 0.1 -Total Square Cm 88.80 -Wound/Ulcer Outcome Failed Flap -Ulcer Cleansing Rinsed/ Irrigated with Saline -Foul Odor after Cleansing No -Bioengineered Tissue No -Bleeding Controlled with Pressure -Treatment Response Procedure Tolerated Well Pain Scale: 0-10 Numeric Is Patient Pain Free? Yes Wound debrided: RLE venous ulcer Laterality: Right Type of Debridement: Excisional debridement Anesthesia Used: 4% Lidocaine Solution Depth: in the subcutaneous layer Percentage of wound debrided: 100 Instrument Used: 5mm curette Tissue Removed: slough and fibrous tissue Severity: Fat Layer Exposed Amount of bleeding with debridement: Mild Bleeding Controlled with: Pressure Patient tolerated procedure well Assessment/Plan Assessment: lymphedema. Chronic nonhealing ulcer right lower extremity. morbid obesity Plan: The patient was seen and examined at the wound center today and was updated on the plan of care. A subcutaneous debridement was performed today. The patient tolerated the procedure well. The patients wound care will consist of:unna boot application bilaterally and patient to return next Wednesday for nurse visit and reapplication. Wound cultures were collected. Baseline bloodwork ordered. Vascular studies reviewed from last year which demonstrated DELGADO right 0.87 and left 0.81, he does have a history of venous insufficiency, therefore ulcer is most likely venous in nature, no indication for repeat venous study at this time. Patient educated on the importance of diet on wound healing and instructed to increase protein and vitamin C intake. Patient verbalized understanding. Patient will follow up at wound healing center in one week or sooner if needed. This note was generated with [employer] dictation software. It may contain incorrect words, spelling, and punctuation that were not noted in checking the note before signing. Code Visit Office Visits / Consults: [id number] OV L4 Est 111xxx-113xx: [id number] Steph subq tissue 20 sq cm/< Add On Codes: [id number] Steph subq tissue add-on - x4
[2017-09-16 14:19] VITALS: BP 129/77; PULSE 111; RESP 22; TEMP 36.9; BMI 50.1
--- NOTE | 2017-09-16 17:35 | PCM.WC.PN ---
(1) Venous ulcer of right lower extremity without varicose veins Status: Acute Current Visit: Yes Code(s): I87.2 - Venous insufficiency (chronic) (peripheral); L97.919 - Non-pressure chronic ulcer of unspecified part of right lower leg with unspecified severity Comment: fat layer exposed (2) Diabetes mellitus type 2 in obese Status: Acute Current Visit: Yes Code(s): E11.69 - Type 2 diabetes mellitus with other specified complication; E66.9 - Obesity, unspecified (3) Bilateral edema of lower extremity Status: Chronic Current Visit: Yes Code(s): R60.0 - Localized edema (4) Morbid obesity due to excess calories Status: Chronic Current Visit: Yes Code(s): E66.01 - Morbid (severe) obesity due to excess calories Type of Wound Date of Service: 09/16/17 Chief Complaint: venous ulcers of right lower extremity, chronic lymphedema of bilateral lower extremities History of Wound: This is a 64-year-old morbidly obese white male with multiple medical problems. 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 He has chronic swelling and edema and lymphedema in his lower extremities, with skin changes and has been noncompliant with lymphedema pumps, tubigrips, and compression stockings. He presents complaining of ulcerations of right lower extremity and drainage which started about a month ago shortly after being discharged from the wound center. He also noted edema of the bilateral lower extremities as well. He has been noncompliant with ongoing compression treatment, refuses to wear his circaids, and only wears his tubigrips as needed. He denies any other alleviating or aggravating factors and denies any pain or foul-smelling discharge. Progress of Wound: The patient tolerated his Unna boots well, his wounds are stable and improving, he denies any fever chills or systemic signs of infection denies any pain or purulent drainage. - Physical Exam Vital Signs Temp Pulse Resp BP 98.4 F 111 H 22 H 129/77 H 09/16/17 14:19 09/16/17 14:19 09/16/17 14:19 09/16/17 14:19 General: Alert, Oriented x3, Cooperative, No apparent distress HEENT: Atraumatic Cardiovascular: Regular rate Extremities: Diminished Peripheral Pulses, Edema - 2+ pitting edema bilaterally, - - Bilateral lower extremities have chronic skin changes and purple/red discoloration, no warmth however Skin: Ulcer/ Wound - Cluster ulcer present right posterior calf with moderate amount of slough and fibrous tissue present Wound Measurements and Assessment WC - Nurse 1 - General Ulcer Measurement Start: 09/09/17 15:54 Freq: Status: Active Protocol: Activity Type Activity Date Activity User E-Sign Co-Sign Detail Recorded Client Recorded Date Recorded By Document 09/16/17 14:19 DL [id number] 09/16/17 14:36 DL 09/16/17 14:19 Wound Center Nurse 1 [Ulcer Assessment] #9 RIGHT POSTERIOR LE -Current Size (cm) - Length 2 -Current Size (cm) - Width 10.5 -Current Size (cm) - Depth 0.1 -Total Square Cm 21.0 -Photo Taken No -Exudate Amt None Present (0 %) -Wound Margin Indistinct, Non -Visible -Granulation Amt Large (67-100%) -Granulation Quality [place] -Necrosis Amt None Present (0 %) -Structure Exposed N/A -Texture (Estela-wound Skin Appearance) Scarring -Moisture (Estela-wound Skin Appearance No Abnormality ) -Color (Estela-wound Skin Appearance) Hemosiderin Staining -Temperature (Estela-wound Skin No Abnormality Appearance) (Pt Warm) -Ulcer Cleansing Wound Cleanser -Foul Odor after Cleansing No -Anesthetic Used 4% Lidocaine Solution [Edema Assessment] -Right Calf (cm) 50 -Right Ankle (cm) 33.5 -Left Calf (cm) 51 -Left Ankle (cm) 32.2 WC - Nurse 2 - General Ulcer CM Notes Start: 09/09/17 15:54 Freq: Status: Active Protocol: Activity Type Activity Date Activity User E-Sign Co-Sign Detail Recorded Client Recorded Date Recorded By Document 09/16/17 15:24 DV [id number] 09/16/17 15:31 DV 09/16/17 15:24 Wound Center Nurse 2 [Procedure/Treatment] #9 RIGHT POSTERIOR LE -Time 15:27 -Correct Patient Yes -Correct Side, Site, Position Yes -Correct Procedure Yes -Procedure Performed Yes -Type of Procedure Debridement -Clinical Debridement Subcutaneous -Post Debridement Size (cm) - Length 8.0 -Post Debridement Size (cm) - Width 14.5 -Post Debridement Size (cm) - Depth 0.1 -Total Square Cm 116.00 -Wound/Ulcer Outcome Not Healed -Ulcer Cleansing Rinsed/ Irrigated with Saline -Foul Odor after Cleansing No -Bioengineered Tissue No -Bleeding Controlled with Pressure -Treatment Response Procedure Tolerated Well [See Physician Procedure note for Specifics] Pain Scale: 0-10 Numeric [Pain] -Is Patient Pain Free? Yes Psych/Mental Status: Normal Affect, Appropriate, Alert and oriented to time, place, person, mood and affect Debridement Note Post-Debridement Measurements/Treatment WC - Nurse 2 - General Ulcer CM Notes Start: 09/09/17 15:54 Freq: Status: Active Protocol: Activity Type Activity Date Activity User E-Sign Co-Sign Detail Recorded Client Recorded Date Recorded By Document 09/09/17 17:05 DV [id number] 09/09/17 17:10 DV Document 09/16/17 15:24 DV [id number] 09/16/17 15:31 DV 09/09/17 09/16/17 17:05 15:24 Wound Center Nurse 2 #9 RIGHT POSTERIOR LE -Time 17:07 15:27 -Correct Patient Yes Yes -Correct Side, Site, Position Yes Yes -Correct Procedure Yes Yes -Procedure Performed Yes Yes -Type of Procedure Debridement Debridement -Clinical Debridement Subcutaneous Subcutaneous -Post Debridement Size (cm) - Length 14.8 8.0 -Post Debridement Size (cm) - Width 6.0 14.5 -Post Debridement Size (cm) - Depth 0.1 0.1 -Total Square Cm 88.80 116.00 -Wound/Ulcer Outcome Failed Flap Not Healed -Ulcer Cleansing Rinsed/ Rinsed/ Irrigated with Irrigated with Saline Saline -Foul Odor after Cleansing No No -Bioengineered Tissue No No -Bleeding Controlled with Pressure Pressure -Treatment Response Procedure Procedure Tolerated Well Tolerated Well Pain Scale: 0-10 Numeric Is Patient Pain Free? Yes Yes Wound debrided: Cluster ulcer right posterior lower extremity Laterality: Right Type of Debridement: Excisional debridement Anesthesia Used: 4% Lidocaine Solution Depth: in the subcutaneous layer Percentage of wound debrided: 100 Instrument Used: 5mm curette Tissue Removed: Slough and fibrous tissue removed Severity: Fat Layer Exposed Amount of bleeding with debridement: Mild Bleeding Controlled with: Pressure Patient tolerated procedure well Assessment/Plan Active Problems Diabetes mellitus type 2 in obese (Acute) Morbid obesity due to excess calories (Chronic) Bilateral edema of lower extremity (Chronic) Venous ulcer of right lower extremity without varicose veins (Acute) fat layer exposed Assessment: lymphedema. Chronic nonhealing ulcer right lower extremity stable and improving. morbid obesity Plan: The patient was seen and examined at the wound center today and was updated on the plan of care. A subcutaneous debridement was performed today. The patient tolerated the procedure well. The patients wound care will consist of:unna boot application bilaterally and patient to return next Wednesday for nurse visit and reapplication. Wound cultures were not collected previously due to patient refusal. Baseline bloodwork not ordered due to refusal, will request PCPs previous blood work. Vascular studies reviewed from last year which demonstrated DELGADO right 0.87 and left 0.81, he does have a history of venous insufficiency, therefore ulcer is most likely venous in nature, no indication for repeat venous study at this time as patient refuses to do so. Patient educated on the importance of diet on wound healing and instructed to increase protein and vitamin C intake. Patient verbalized understanding. Patient will follow up at wound healing center in one week or sooner if needed. This note was generated with [employer] dictation software. It may contain incorrect words, spelling, and punctuation that were not noted in checking the note before signing. Code Visit 111xxx-113xx: 46445 Steph subq tissue 20 sq cm/< Add On Codes: 06169 Steph subq tissue add-on - ?5
--- NOTE | 2017-09-16 17:46 | PN.PCM_ITS ---
(1) Venous ulcer of right lower extremity without varicose veins Status: Acute Current Visit: Yes Code(s): I87.2 - Venous insufficiency ( chronic) (peripheral); L97.919 - Non-pressure chronic ulcer of unspecified part of right lower leg with unspecified severity Comment: fat layer exposed (2) Diabetes mellitus type 2 in obese Status: Acute Current Visit: Yes Code(s): E11.69 - Type 2 diabetes mellitus with other specified complication; E66.9 - Obesity, unspecified (3) Bilateral edema of lower extremity Status: Chronic Current Visit: Yes Code(s): R60.0 - Localized edema (4) Morbid obesity due to excess calories Status: Chronic Current Visit: Yes Code(s): E66.01 - Morbid (severe) obesity due to excess calories Type of Wound Date of Service: 09/16/17 Chief Complaint: venous ulcers of right lower extremity, chronic lymphedema of bilateral lower extremities History of Wound: This is a 64-year-old morbidly obese white male with multiple medical problems. 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 He has chronic swelling and edema and lymphedema in his lower extremities, with skin changes and has been noncompliant with lymphedema pumps, tubigrips, and compression stockings. He presents complaining of ulcerations of right lower extremity and drainage which started about a month ago shortly after being discharged from the wound center. He also noted edema of the bilateral lower extremities as well. He has been noncompliant with ongoing compression treatment, refuses to wear his circaids, and only wears his tubigrips as needed. He denies any other alleviating or aggravating factors and denies any pain or foul-smelling discharge. Progress of Wound: The patient tolerated his Unna boots well, his wounds are stable and improving, he denies any fever chills or systemic signs of infection denies any pain or purulent drainage. - Physical Exam Vital Signs Temp Pulse Resp BP 98.4 F 111 H 22 H 129/77 H 09/16/17 14:19 09/16/17 14:19 09/16/17 14:19 09/16/17 14:19 General: Alert, Oriented x3, Cooperative, No apparent distress HEENT: Atraumatic Cardiovascular: Regular rate Extremities: Diminished Peripheral Pulses, Edema - 2+ pitting edema bilaterally , - - Bilateral lower extremities have chronic skin changes and purple/red discoloration, no warmth however Skin: Ulcer/ Wound - Cluster ulcer present right posterior calf with moderate amount of slough and fibrous tissue present Wound Measurements and Assessment WC - Nurse 1 - General Ulcer Measurement Start: 09/09/17 15:54 Freq: Status: Active Protocol: Activity Type Activity Date Activity User E-Sign Co-Sign Detail Recorded Client Recorded Date Recorded By Document 09/16/17 14:19 DL [id number] 09/16/17 14:36 DL 09/16/17 14:19 Wound Center Nurse 1 [Ulcer Assessment] #9 RIGHT POSTERIOR LE -Current Size (cm) - Length 2 -Current Size (cm) - Width 10.5 -Current Size (cm) - Depth 0.1 -Total Square Cm 21.0 -Photo Taken No -Exudate Amt None Present (0 %) -Wound Margin Indistinct, Non -Visible -Granulation Amt Large (67-100%) -Granulation Quality [place] -Necrosis Amt None Present (0 %) -Structure Exposed N/A -Texture (Estela-wound Skin Appearance) Scarring -Moisture (Estela-wound Skin Appearance No Abnormality ) -Color (Estela-wound Skin Appearance) Hemosiderin Staining -Temperature (Estela-wound Skin No Abnormality Appearance) (Pt Warm) -Ulcer Cleansing Wound Cleanser -Foul Odor after Cleansing No -Anesthetic Used 4% Lidocaine Solution [Edema Assessment] -Right Calf (cm) 50 -Right Ankle (cm) 33.5 -Left Calf (cm) 51 -Left Ankle (cm) 32.2 WC - Nurse 2 - General Ulcer CM Notes Start: 09/09/17 15:54 Freq: Status: Active Protocol: Activity Type Activity Date Activity User E-Sign Co-Sign Detail Recorded Client Recorded Date Recorded By Document 09/16/17 15:24 DV [id number] 09/16/17 15:31 DV 09/16/17 15:24 Wound Center Nurse 2 [Procedure/Treatment] #9 RIGHT POSTERIOR LE -Time 15:27 -Correct Patient Yes -Correct Side, Site, Position Yes -Correct Procedure Yes -Procedure Performed Yes -Type of Procedure Debridement -Clinical Debridement Subcutaneous -Post Debridement Size (cm) - Length 8.0 -Post Debridement Size (cm) - Width 14.5 -Post Debridement Size (cm) - Depth 0.1 -Total Square Cm 116.00 -Wound/Ulcer Outcome Not Healed -Ulcer Cleansing Rinsed/ Irrigated with Saline -Foul Odor after Cleansing No -Bioengineered Tissue No -Bleeding Controlled with Pressure -Treatment Response Procedure Tolerated Well [See Physician Procedure note for Specifics] Pain Scale: 0-10 Numeric [Pain] -Is Patient Pain Free? Yes Psych/Mental Status: Normal Affect, Appropriate, Alert and oriented to time, place, person, mood and affect Debridement Note Post-Debridement Measurements/Treatment WC - Nurse 2 - General Ulcer CM Notes Start: 09/09/17 15:54 Freq: Status: Active Protocol: Activity Type Activity Date Activity User E-Sign Co-Sign Detail Recorded Client Recorded Date Recorded By Document 09/09/17 17:05 DV [id number] 09/09/17 17:10 DV Document 09/16/17 15:24 DV [id number] 09/16/17 15:31 DV 09/09/17 09/16/17 17:05 15:24 Wound Center Nurse 2 #9 RIGHT POSTERIOR LE -Time 17:07 15:27 -Correct Patient Yes Yes -Correct Side, Site, Position Yes Yes -Correct Procedure Yes Yes -Procedure Performed Yes Yes -Type of Procedure Debridement Debridement -Clinical Debridement Subcutaneous Subcutaneous -Post Debridement Size (cm) - Length 14.8 8.0 -Post Debridement Size (cm) - Width 6.0 14.5 -Post Debridement Size (cm) - Depth 0.1 0.1 -Total Square Cm 88.80 116.00 -Wound/Ulcer Outcome Failed Flap Not Healed -Ulcer Cleansing Rinsed/ Rinsed/ Irrigated with Irrigated with Saline Saline -Foul Odor after Cleansing No No -Bioengineered Tissue No No -Bleeding Controlled with Pressure Pressure -Treatment Response Procedure Procedure Tolerated Well Tolerated Well Pain Scale: 0-10 Numeric Is Patient Pain Free? Yes Yes Wound debrided: Cluster ulcer right posterior lower extremity Laterality: Right Type of Debridement: Excisional debridement Anesthesia Used: 4% Lidocaine Solution Depth: in the subcutaneous layer Percentage of wound debrided: 100 Instrument Used: 5mm curette Tissue Removed: Slough and fibrous tissue removed Severity: Fat Layer Exposed Amount of bleeding with debridement: Mild Bleeding Controlled with: Pressure Patient tolerated procedure well Assessment/Plan Active Problems Diabetes mellitus type 2 in obese (Acute) Morbid obesity due to excess calories (Chronic) Bilateral edema of lower extremity (Chronic) Venous ulcer of right lower extremity without varicose veins (Acute) fat layer exposed Assessment: lymphedema. Chronic nonhealing ulcer right lower extremity stable and improving. morbid obesity Plan: The patient was seen and examined at the wound center today and was updated on the plan of care. A subcutaneous debridement was performed today. The patient tolerated the procedure well. The patients wound care will consist of:unna boot application bilaterally and patient to return next Wednesday for nurse visit and reapplication. Wound cultures were not collected previously due to patient refusal. Baseline bloodwork not ordered due to refusal, will request PCPs previous blood work. Vascular studies reviewed from last year which demonstrated DELGADO right 0.87 and left 0.81, he does have a history of venous insufficiency, therefore ulcer is most likely venous in nature, no indication for repeat venous study at this time as patient refuses to do so. Patient educated on the importance of diet on wound healing and instructed to increase protein and vitamin C intake. Patient verbalized understanding. Patient will follow up at wound healing center in one week or sooner if needed. This note was generated with [employer] dictation software. It may contain incorrect words, spelling, and punctuation that were not noted in checking the note before signing. Code Visit 111xxx-113xx: 87599 Steph subq tissue 20 sq cm/< Add On Codes: 53467 Steph subq tissue add-on - ?5
[2017-09-20 14:35] VITALS: BP 154/75; PULSE 108; RESP 20; BMI 50.1
[2017-09-23 13:57] VITALS: BP 142/81; PULSE 116; RESP 20; TEMP 37; BMI 50.1
--- NOTE | 2017-09-23 17:43 | PCM.WC.PN ---
(1) Venous ulcer of right lower extremity without varicose veins Status: Acute Current Visit: Yes Code(s): I87.2 - Venous insufficiency (chronic) (peripheral); L97.919 - Non-pressure chronic ulcer of unspecified part of right lower leg with unspecified severity Comment: fat layer exposed (2) Diabetes mellitus type 2 in obese Status: Acute Current Visit: Yes Code(s): E11.69 - Type 2 diabetes mellitus with other specified complication; E66.9 - Obesity, unspecified (3) Bilateral edema of lower extremity Status: Chronic Current Visit: Yes Code(s): R60.0 - Localized edema (4) Morbid obesity due to excess calories Status: Chronic Current Visit: Yes Code(s): E66.01 - Morbid (severe) obesity due to excess calories Type of Wound Date of Service: 09/23/17 Chief Complaint: venous ulcers of right lower extremity, chronic lymphedema of bilateral lower extremities History of Wound: This is a 64-year-old morbidly obese white male with multiple medical problems. 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 He has chronic swelling and edema and lymphedema in his lower extremities, with skin changes and has been noncompliant with lymphedema pumps, tubigrips, and compression stockings. He presents complaining of ulcerations of right lower extremity and drainage which started about a month ago shortly after being discharged from the wound center. He also noted edema of the bilateral lower extremities as well. He has been noncompliant with ongoing compression treatment, refuses to wear his circaids, and only wears his tubigrips as needed. He denies any other alleviating or aggravating factors and denies any pain or foul-smelling discharge. Progress of Wound: The patient tolerated his Unna boots well, his wounds are healed, he denies any fever chills or systemic signs of infection denies any pain or purulent drainage.Negative comprehensive ROS - Physical Exam Vital Signs Temp Pulse Resp BP 98.6 F 116 H 20 H 142/81 H 09/23/17 13:57 09/23/17 13:57 09/23/17 13:57 09/23/17 13:57 General: Alert, Oriented x3, Cooperative, No apparent distress Oral: Moist Mucosa Lungs: Clear to auscultation Cardiovascular: Regular rate Extremities: No clubbing, No cyanosis, Capillary Refill Less than 3 Seconds, Diminished Peripheral Pulses, Edema - 2+ BLLE Skin: Ulcer/ Wound - RLE ulcer epithelialized and healed. No signs of infection, - - Skin dry and flaky BLLE, fungus present toenails, chronic rubor of BLLE Wound Measurements and Assessment WC - Nurse 1 - General Ulcer Measurement Start: 09/09/17 15:54 Freq: Status: Active Protocol: Activity Type Activity Date Activity User E-Sign Co-Sign Detail Recorded Client Recorded Date Recorded By Document 09/23/17 13:57 [facility] [id number] 09/23/17 14:10 [facility] 09/23/17 13:57 Wound Center Nurse 1 [Ulcer Assessment] #9 RIGHT POSTERIOR LE -Combined with other wound No -Current Size (cm) - Length 0 -Current Size (cm) - Width 0 -Current Size (cm) - Depth 0 -Total Square Cm 0 -Date of Last Picture (Recall this 09/23/17 field) -Photo Taken Yes -Epithelialization Large 67-100% -Tunneling No -Undermining/Tunneling No -Exudate Amt None Present (0 %) -Temperature (Estela-wound Skin No Abnormality Appearance) (Pt Warm) -Tenderness on Palpation (Estela-wound No Skin Appearance) -Ulcer Cleansing Wound Cleanser [Edema Assessment] -Lower Limb Edema Present Yes -Right Calf (cm) 49.6 -Right Ankle (cm) 32.5 -Left Calf (cm) 50.7 -Left Ankle (cm) 31.1 WC - Nurse 2 - General Ulcer CM Notes Start: 09/09/17 15:54 Freq: Status: Active Protocol: Activity Type Activity Date Activity User E-Sign Co-Sign Detail Recorded Client Recorded Date Recorded By Document 09/23/17 15:25 DV [id number] 09/23/17 15:31 DV 09/23/17 15:25 Wound Center Nurse 2 [Procedure/Treatment] #9 RIGHT POSTERIOR LE -Time 15:26 -Correct Patient Yes -Correct Side, Site, Position Yes -Procedure Performed No -Post Debridement Size (cm) - Length 0 -Post Debridement Size (cm) - Width 0 -Post Debridement Size (cm) - Depth 0 -Total Square Cm 0 -Wound/Ulcer Outcome Healed- Epithelialized [See Physician Procedure note for Specifics] Pain Scale: 0-10 Numeric [Pain] -Is Patient Pain Free? Yes Neurological: Neuro grossly intact Psych/Mental Status: Normal Affect, Alert and oriented to time, place, person, mood and affect Debridement Note Post-Debridement Measurements/Treatment WC - Nurse 2 - General Ulcer CM Notes Start: 09/09/17 15:54 Freq: Status: Active Protocol: Activity Type Activity Date Activity User E-Sign Co-Sign Detail Recorded Client Recorded Date Recorded By Document 09/09/17 17:05 DV [id number] 09/09/17 17:10 DV Document 09/16/17 15:24 DV [id number] 09/16/17 15:31 DV Document 09/23/17 15:25 DV [id number] 09/23/17 15:31 DV 09/09/17 09/16/17 09/23/17 17:05 15:24 15:25 Wound Center Nurse 2 #9 RIGHT POSTERIOR LE -Time 17:07 15:27 15:26 -Correct Patient Yes Yes Yes -Correct Side, Site, Position Yes Yes Yes -Correct Procedure Yes Yes -Procedure Performed Yes Yes No -Type of Procedure Debridement Debridement -Clinical Debridement Subcutaneous Subcutaneous -Post Debridement Size (cm) - Length 14.8 8.0 0 -Post Debridement Size (cm) - Width 6.0 14.5 0 -Post Debridement Size (cm) - Depth 0.1 0.1 0 -Total Square Cm 88.80 116.00 0 -Wound/Ulcer Outcome Failed Flap Not Healed Healed- Epithelialized -Ulcer Cleansing Rinsed/ Rinsed/ Irrigated with Irrigated with Saline Saline -Foul Odor after Cleansing No No -Bioengineered Tissue No No -Bleeding Controlled with Pressure Pressure -Treatment Response Procedure Procedure Tolerated Well Tolerated Well Pain Scale: 0-10 Numeric Is Patient Pain Free? Yes Yes Yes Assessment/Plan Active Problems Diabetes mellitus type 2 in obese (Acute) Morbid obesity due to excess calories (Chronic) Bilateral edema of lower extremity (Chronic) Venous ulcer of right lower extremity without varicose veins (Acute) fat layer exposed Assessment: lymphedema. Chronic nonhealing ulcer right lower extremity HEALED. morbid obesity Plan: The patient was seen and examined at the wound center today and was updated on the plan of care. Tolerated UNNA boots well, he is healed. Will be wrapped with adaptic over dry areas and 3M wraps with is home nurse to remove wraps in one week, apply for new circaid orders that patient willing to pay for if need be. Patient educated on the importance of diet on wound healing and instructed to increase protein and vitamin C intake. Patient verbalized understanding. Patient will follow up at wound healing center as needed. This note was generated with [employer] dictation software. It may contain incorrect words, spelling, and punctuation that were not noted in checking the note before signing. Code Visit Office Visits / Consults: [id number] OV L3 Est
--- NOTE | 2017-09-23 17:51 | PN.PCM_ITS ---
(1) Venous ulcer of right lower extremity without varicose veins Status: Acute Current Visit: Yes Code(s): I87.2 - Venous insufficiency ( chronic) (peripheral); L97.919 - Non-pressure chronic ulcer of unspecified part of right lower leg with unspecified severity Comment: fat layer exposed (2) Diabetes mellitus type 2 in obese Status: Acute Current Visit: Yes Code(s): E11.69 - Type 2 diabetes mellitus with other specified complication; E66.9 - Obesity, unspecified (3) Bilateral edema of lower extremity Status: Chronic Current Visit: Yes Code(s): R60.0 - Localized edema (4) Morbid obesity due to excess calories Status: Chronic Current Visit: Yes Code(s): E66.01 - Morbid (severe) obesity due to excess calories Type of Wound Date of Service: 09/23/17 Chief Complaint: venous ulcers of right lower extremity, chronic lymphedema of bilateral lower extremities History of Wound: This is a 64-year-old morbidly obese white male with multiple medical problems. 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 He has chronic swelling and edema and lymphedema in his lower extremities, with skin changes and has been noncompliant with lymphedema pumps, tubigrips, and compression stockings. He presents complaining of ulcerations of right lower extremity and drainage which started about a month ago shortly after being discharged from the wound center. He also noted edema of the bilateral lower extremities as well. He has been noncompliant with ongoing compression treatment, refuses to wear his circaids, and only wears his tubigrips as needed. He denies any other alleviating or aggravating factors and denies any pain or foul-smelling discharge. Progress of Wound: The patient tolerated his Unna boots well, his wounds are healed, he denies any fever chills or systemic signs of infection denies any pain or purulent drainage.Negative comprehensive ROS - Physical Exam Vital Signs Temp Pulse Resp BP 98.6 F 116 H 20 H 142/81 H 09/23/17 13:57 09/23/17 13:57 09/23/17 13:57 09/23/17 13:57 General: Alert, Oriented x3, Cooperative, No apparent distress Oral: Moist Mucosa Lungs: Clear to auscultation Cardiovascular: Regular rate Extremities: No clubbing, No cyanosis, Capillary Refill Less than 3 Seconds, Diminished Peripheral Pulses, Edema - 2+ BLLE Skin: Ulcer/ Wound - RLE ulcer epithelialized and healed. No signs of infection , - - Skin dry and flaky BLLE, fungus present toenails, chronic rubor of BLLE Wound Measurements and Assessment WC - Nurse 1 - General Ulcer Measurement Start: 09/09/17 15:54 Freq: Status: Active Protocol: Activity Type Activity Date Activity User E-Sign Co-Sign Detail Recorded Client Recorded Date Recorded By Document 09/23/17 13:57 [facility] [id number] 09/23/17 14:10 [facility] 09/23/17 13:57 Wound Center Nurse 1 [Ulcer Assessment] #9 RIGHT POSTERIOR LE -Combined with other wound No -Current Size (cm) - Length 0 -Current Size (cm) - Width 0 -Current Size (cm) - Depth 0 -Total Square Cm 0 -Date of Last Picture (Recall this 09/23/17 field) -Photo Taken Yes -Epithelialization Large 67-100% -Tunneling No -Undermining/Tunneling No -Exudate Amt None Present (0 %) -Temperature (Estela-wound Skin No Abnormality Appearance) (Pt Warm) -Tenderness on Palpation (Estela-wound No Skin Appearance) -Ulcer Cleansing Wound Cleanser [Edema Assessment] -Lower Limb Edema Present Yes -Right Calf (cm) 49.6 -Right Ankle (cm) 32.5 -Left Calf (cm) 50.7 -Left Ankle (cm) 31.1 WC - Nurse 2 - General Ulcer CM Notes Start: 09/09/17 15:54 Freq: Status: Active Protocol: Activity Type Activity Date Activity User E-Sign Co-Sign Detail Recorded Client Recorded Date Recorded By Document 09/23/17 15:25 DV [id number] 09/23/17 15:31 DV 09/23/17 15:25 Wound Center Nurse 2 [Procedure/Treatment] #9 RIGHT POSTERIOR LE -Time 15:26 -Correct Patient Yes -Correct Side, Site, Position Yes -Procedure Performed No -Post Debridement Size (cm) - Length 0 -Post Debridement Size (cm) - Width 0 -Post Debridement Size (cm) - Depth 0 -Total Square Cm 0 -Wound/Ulcer Outcome Healed- Epithelialized [See Physician Procedure note for Specifics] Pain Scale: 0-10 Numeric [Pain] -Is Patient Pain Free? Yes Neurological: Neuro grossly intact Psych/Mental Status: Normal Affect, Alert and oriented to time, place, person, mood and affect Debridement Note Post-Debridement Measurements/Treatment WC - Nurse 2 - General Ulcer CM Notes Start: 09/09/17 15:54 Freq: Status: Active Protocol: Activity Type Activity Date Activity User E-Sign Co-Sign Detail Recorded Client Recorded Date Recorded By Document 09/09/17 17:05 DV [id number] 09/09/17 17:10 DV Document 09/16/17 15:24 DV [id number] 09/16/17 15:31 DV Document 09/23/17 15:25 DV [id number] 09/23/17 15:31 DV 09/09/17 09/16/17 09/23/17 17:05 15:24 15:25 Wound Center Nurse 2 #9 RIGHT POSTERIOR LE -Time 17:07 15:27 15:26 -Correct Patient Yes Yes Yes -Correct Side, Site, Position Yes Yes Yes -Correct Procedure Yes Yes -Procedure Performed Yes Yes No -Type of Procedure Debridement Debridement -Clinical Debridement Subcutaneous Subcutaneous -Post Debridement Size (cm) - Length 14.8 8.0 0 -Post Debridement Size (cm) - Width 6.0 14.5 0 -Post Debridement Size (cm) - Depth 0.1 0.1 0 -Total Square Cm 88.80 116.00 0 -Wound/Ulcer Outcome Failed Flap Not Healed Healed- Epithelialized -Ulcer Cleansing Rinsed/ Rinsed/ Irrigated with Irrigated with Saline Saline -Foul Odor after Cleansing No No -Bioengineered Tissue No No -Bleeding Controlled with Pressure Pressure -Treatment Response Procedure Procedure Tolerated Well Tolerated Well Pain Scale: 0-10 Numeric Is Patient Pain Free? Yes Yes Yes Assessment/Plan Active Problems Diabetes mellitus type 2 in obese (Acute) Morbid obesity due to excess calories (Chronic) Bilateral edema of lower extremity (Chronic) Venous ulcer of right lower extremity without varicose veins (Acute) fat layer exposed Assessment: lymphedema. Chronic nonhealing ulcer right lower extremity HEALED. morbid obesity Plan: The patient was seen and examined at the wound center today and was updated on the plan of care. Tolerated UNNA boots well, he is healed. Will be wrapped with adaptic over dry areas and 3M wraps with is home nurse to remove wraps in one week, apply for new circaid orders that patient willing to pay for if need be. Patient educated on the importance of diet on wound healing and instructed to increase protein and vitamin C intake. Patient verbalized understanding. Patient will follow up at wound healing center as needed. This note was generated with [employer] dictation software. It may contain incorrect words, spelling, and punctuation that were not noted in checking the note before signing. Code Visit Office Visits / Consults: [id number] OV L3 Est
== END 2017-10-02 23:59 ==
LOC: WC 14:00
PROVIDERS: Visit Provider Nurse Practitioner Family
DX: E11.622 Type 2 diabetes mellitus with other skin ulcer (principal); E11.51 Type 2 diabetes mellitus with diabetic peripheral angiopathy without gangrene; R60.0 Localized edema; E66.01 Morbid (severe) obesity due to excess calories; Z68.43 Body mass index [BMI] 50.0-59.9, adult; Z71.3 Dietary counseling and surveillance; I89.0 Lymphedema, not elsewhere classified; E78.5 Hyperlipidemia, unspecified; J44.9 Chronic obstructive pulmonary disease, unspecified; G47.30 Sleep apnea, unspecified; Z99.81 Dependence on supplemental oxygen; Z91.19 Patient's noncompliance with other medical treatment and regimen
CPT/HCPCS: 11042; 11045; 29580; 29581; 99211; 99213; G0463